=== PATIENT | female | born 1990 | race Hispanic/Latino ===

== ENCOUNTER 2016-07-16 14:15 | Emergency (ER) | payer OTHER ==
[~2016-07-16] VITALS: Ht 157.5 cm; Wt 56.2 kg
[~2016-07-16 14:15] MED LIST: BACTRIM DS 8001 TAB PO; BLM PO; KEFLEX500 MG PO; NORCO 325 MG-51 TAB PO; PREDNISONE 10MG10 M1 PO; PROVENTIL0.09 MG/A1 INH; TESSALON PERLE100 MG PO; TRAMADOL50 MG PO; ZOFRAN ODT4 MG PO
[2016-07-16] MEDS ORDERED: LORATADINE10 M1 PO (14:37)
[2016-07-16] MEDS ORDERED: NUVARING VAGIN1 EACH VG (14:37)
[2016-07-16] MEDS ORDERED: CITALOPRAM HBR10 MG PO (14:37)
[2016-07-16] MEDS ORDERED: PREDNISONE20 M1 PO (14:38)
[2016-07-16] MEDS ORDERED: RANITIDINE HCL150 MG PO (14:38)
--- NOTE | 2016-07-16 14:52 | ED SKIN/ALLERGY COMPLAINT ---
History of Present Illness General Chief Complaint: Skin Rash/ Abcess Stated Complaint: RASH SINCE FRIDAY Source: patient, old records Exam Limitations: no limitations Vital Signs & Intake/Output Vital Signs & Intake/Output Vital Signs Date Time Temp Pulse Resp B/P B/P Pulse O2 O2 Flow FiO2 Mean Ox Delivery Rate 07/16 1540 97.1 81 18 107/66 99 Room Air 07/16 1419 97.9 119 16 119/78 97 Room Air Allergies Coded Allergies: mushroom (HIVES, ITCHY 07/16/16) pumpkin (REALLY BAD ITCH IN THROAT 07/16/16) Reconcile Medications Citalopram Hydrobromide (Citalopram HBr) 10 MG TABLET 1 TAB PO DAILY MENTAL HEALTH (Reported) Etonogestrel/Ethinyl Estradiol (Nuvaring Vaginal Ring) 0.12 MG -0.015 MG/24 HR VAG.RING 1 EACH VG Q30D CONTROL (Reported) use for 3 weeks, skip for 1 week Loratadine 10 MG TABLET 1 TAB PO DAILY RASH (Reported) Prednisone 20 MG TABLET 1 TAB PO BID RASH (Reported) Ranitidine (Ranitidine HCl) 150 MG TABLET 1 TAB PO BID RASH (Reported) Triage Note: PT STATES SHE HAS HAD A RASH SINCE FRIDAY. PT WENT TO WALK IN ON FRIDAY AND GIVEN ZANTAC, PREDNISONE AND LORATADINE BUT HAS NOT STARTED TAKING THEM. Triage Nurses Notes Reviewed? yes Onset: Last week Duration: day(s):, constant, continues in ED, getting worse Timing: recent history Severity: severe Location: generalized Possible Factors: foods, medications Modifying Factors: Improves With: scratching. Associated Symptoms: change in skin texture, rash LMP (ages 10-50): unknown : No Patient currently breastfeeds: No HPI: 5 days prior to admission patient reports eating shrimp that were prepared at the same area as mushrooms Past History Travel History Traveled to [place] past 21 day No Medical History Any Pertinent Medical History? see below for history Psychiatric: anxiety, depression Surgical History Surgical History: non-contributory Psychosocial History What is your primary language Honduran Tobacco Use: Current Daily Use Daily Tobacco Use Amount/Type: => 5 Cigarettes daily ETOH Use: occasional use Illicit Drug Use: marijuana Family History Hx Contributory? No Review of Systems Review of Systems Constitutional: Reports: no symptoms. EENTM: Reports: no symptoms. Respiratory: Reports: no symptoms. Cardiovascular: Reports: no symptoms. GI: Reports: no symptoms. Genitourinary: Reports: no symptoms. Musculoskeletal: Reports: no symptoms. Skin: Reports: see HPI, rash. Neurological/Psychological: Reports: no symptoms. Hematologic/Endocrine: Reports: no symptoms. Immunologic/Allergic: Reports: no symptoms. All Other Systems: Reviewed and Negative Physical Exam Physical Exam General Appearance: well developed/nourished, mild distress Head: atraumatic Eyes: Bilateral: PERRL, EOMI. Ears, Nose, Throat: normal pharynx, normal ENT inspection, hearing grossly normal Neck: normal inspection, supple Respiratory: normal breath sounds Cardiovascular: regular rate/rhythm Peripheral Pulses: 4+ carotid (R), 4+ carotid (L) Gastrointestinal: soft, non-tender Back: normal inspection Extremities: normal inspection, normal range of motion, no edema Neurologic/Psych: awake, alert, oriented x 3, normal mood/affect Reflexes: 2+: bicep (R), bicep (L). Skin: rash Skin Problem Location: generalized Skin Problem Character: patchy, urticarial Lymphatic: no anterior cervical alcides Progress Differential Diagnosis: abscess/cellulitis, allergic reaction, contact dermatitis, urticaria Plan of Care: Current Medications Sig/Codi Start time Last Medication Dose Stop Time Status Admin Diphenhydramine HCl 25 MG ONCE ONE 07/16 144 UNVr (Benadryl) 07/16 144 Famotidine 20 MG ONCE ONE 07/16 1445 UNVr (Pepcid) 07/16 144 Methylprednisolone 125 MG ONCE ONE 07/16 1445 UNVr (Solu Medrol) 07/16 1446 Departure Departure Time of Disposition: 1541 Disposition: HOME OR SELF CARE Condition: Stable Clinical Impression Primary Impression: Drug-induced urticaria Referrals: YING VU DO (PCP/Family) Additional Instructions: Stop Citalopram and call your prescriber. Start the prednisone, zantac and loratadine as prescribed. Departure Forms: Customer Survey General Discharge Information
[2016-07-16 15:40] VITALS: BP 107/66
== END 2016-07-16 15:52 ==
LOC: ERH 14:15
DX: L50.0 Allergic urticaria (principal)
CPT/HCPCS: 96374; 96375; J1200; J2930

== ENCOUNTER 2017-07-03 19:41 | Emergency (ER) | payer OTHER ==
[~2017-07-03] VITALS: Ht 154.9 cm; Wt 63.5 kg
[~2017-07-03 19:41] MED LIST changes: +CITALOPRAM HBR10 MG PO; +LORATADINE10 M1 PO; +NUVARING VAGIN1 EACH VG; +PREDNISONE20 M1 PO; +RANITIDINE HCL150 MG PO
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
[2017-07-03] MEDS ORDERED: ROBAXIN-750750 M1 PO (21:07)
[2017-07-03 21:19] VITALS: BP 122/67
== END 2017-07-03 21:20 ==
LOC: ERH 19:41
DX: M25.512 Pain in left shoulder (principal); V89.2XXA Person injured in unspecified motor-vehicle accident, traffic, initial encounter